=== PATIENT | female | born 1935 | race Caucasian/White ===

== ENCOUNTER → 2016-10-11 12:17 | Emergency (ER) | payer MEDICARE ==
[~2016-10-11 12:17] MED LIST: Insulin REGULAR(*) 1 UNITS UNIT IV PUSH ONE; Morphine INJ* 4 MG/ML 1 ML SYRINGE IV ONE; NS 0.9% 1000 ML* 1,000 ML IV ONE; NS 0.9% 1000 ML* 500 ML IV ONE; Ondansetron INJ* 2 MG/ML VIAL IV ONE
--- NOTE | 2016-10-11 14:04 | RAD ---
Indication: Fall, chest pain. Single view of the chest demonstrates no mediastinal shift. Heart is normal size and configuration. Lungs are clear. No changes noted since March 14, 2015. IMPRESSION: No active cardiopulmonary disease is noted.
--- NOTE | 2016-10-11 14:05 | RAD ---
Indication: Left hip pain. 2 views of left hip demonstrates a fracture through the proximal diaphysis of the femur. Overriding of the fracture fragment is noted. Pelvic ring is grossly intact. IMPRESSION: OBLIQUE FRACTURE THROUGH THE PROXIMAL DIAPHYSIS OF THE FEMUR.
--- NOTE | 2016-10-11 14:06 | RAD ---
Indication: Fall, leg pain. 4 views of the left femur demonstrates spiral fracture through the proximal to mid shaft of the left femur. There is anterior and lateral angulation of the distal fracture fragment with likely rotation. The fracture appears to be moderately comminuted. IMPRESSION: Moderately comminuted spiral fracture proximal and mid shaft of the left femur.
[2016-10-11 14:33] LABS: Hematocrit 34 % (35-47); Hemoglobin 10.7 g/dl (12.0-16.0); Mean Corpuscular HGB Conc 32 g/dl (31-36); Mean Corpuscular Hemoglobin 28 pg (27-31); Mean Corpuscular Volume 89 fL (80-97); Mean Platelet Volume 9 um3 (7.4-10.4); Red Blood Count 3.78 10^6/ul (4.0-5.4); Red Cell Distribution Width 17 % (10.5-15)
[2016-10-11 14:41] LABS: Urine Bacteria Absent (Absent); Urine Bilirubin Negative (Negative); Urine Glucose 3+(>=500 mg/dL) (Negative); Urine Nitrite Negative (Negative)
[2016-10-11 14:41] LABS: Add Diff/Slide Review? Slide Review Added; Comments Flag Yes
[2016-10-11 14:49] LABS: Albumin 3.2 g/dL (3.2-5.2); C Reactive Protein 271.49 mg/L (< 5.00); Calcium 8.9 mg/dL (8.6-10.3); EGFR African American 57.7 (>60); EGFR Non-African American 44.8 (>60); Globulin 2.8 g/dL (2-4); Potassium 4.2 mmol/L (3.5-5.0); Total Bilirubin 1.4 mg/dL (0.2-1.0)
--- NOTE | 2016-10-11 15:53 | RAD ---
Indication: Fall, head injury and neck injury. CT of the brain was performed without IV contrast. Comparison is made with previous exam dated July 11, 2014. Ventricular structures are midline. No midline shift is noted. The extra-axial spaces are unremarkable. There is no evidence of intracranial mass or hemorrhage. Periventricular lucency consistent with chronic ischemic White matter change is noted unchanged from previous exam. Mastoid air cells and paranasal sinuses are otherwise unremarkable. IMPRESSION: There is no evidence of intracranial mass or hemorrhage. Chronic ischemic White matter change is noted.
--- NOTE | 2016-10-11 15:58 | RAD ---
INDICATION: Fall. COMPARISON: None TECHNIQUE: Noncontrast axial source images was performed from the skull base to the thoracic inlet. Coronal and and sagittal reformatted images were generated. FINDINGS: Vertebrae: There is no fracture or acute focal bony lesion. There is minor multilevel osteoarthritic change. Alignment: The craniocervical junction appears normal. The cervical vertebrae are normally aligned. Central Canal: There are no significant CT abnormalities of the central canal or foramina. MR imaging is a more sensitive method to evaluate the canal and foramina. Intervertebral disc spaces: The disc spaces are maintained. Brain: The visualized brain appears unremarkable. Soft tissues: The visualized soft tissue elements of the neck are unremarkable. The prevertebral soft tissues appear normal. The lung apices are clear. IMPRESSION: MINOR DEGENERATIVE CHANGE. NO ACUTE FINDINGS.
[2016-10-11 16:15] VITALS: BP 217/73
--- NOTE | 2016-10-11 16:16 | ED ---
Sallie Man Auryana, scribed for Corwin Garcia MD on 10/11/16 at 1302 . Complex/Multi-Sys Presentation - HPI Summary HPI Summary: 80 year old female BIBA s/p fall 3 days ago. Patient reports that she has been on the floor for 3 days and was unable to reach her call maher in her bedroom. She reports severe left leg pain, back pain, nausea, vomiting x3-4-states due to dehydration. She reports that she was unable to move her left leg due to pain. She denies any SOB. Patient is on blood thinners. PMHx is significant for kidney failure, HTN, HLD, CHF, A-Fib, NIDDM, and hypothyroidism. FHx is significant for lung CA. - History Of Current Complaint Time Seen by Provider: 10/11/16 12:36 Hx Obtained From: Patient Onset/Duration: Sudden Onset Timing: Constant Severity Currently: Severe Severity Initially: Severe Location: Pain At: - BACK PAIN, LEFT LEG PAIN Associated Signs And Symptoms: Positive: Nausea, Vomiting, Back Pain, Decreased Oral Intake - DEHYDRATION - SECONDARY TO FALL, Recent Trauma - FALL 3 DAYS AGO, Other - URINARY AND FECAL INCONTINENCE - Allergies/Home Medications Allergies/Adverse Reactions: Allergies Allergy/AdvReac Type Severity Reaction Status Date / Time Celecoxib [From Celebrex] Allergy Swelling Verified 06/09/15 13:40 PMH/Surg Hx/FS Hx/Imm Hx Endocrine/Hematology History: Reports: Hx Diabetes, Hx Anemia Denies: Hx Anticoagulant Therapy, Hx Blood Disorders, Hx Blood Transfusions, Hx Bone Marrow Disease, Hx Sickle Cell Disease, Hx Thyroid Disease, Hx Unexplained Bleeding, Other Endocrine/Hematological Disorders Cardiovascular History: Reports: Hx Congestive Heart Failure, Hx Hypertension - ON MEDS, Other Cardiovascular Problems/Disorders - CAD/IDDM II Denies: Hx Aneurysm, Hx Angina, Hx Angioplasty, Hx Auto Implanted Cardiovert Defib, Hx Cardiac Arrest, Hx Coronary Artery Disease, Hx Deep Vein Thrombosis, Hx Embolism, Hx Hypercholesterolemia, Hx Hypotension, Hx Myocardial Infarction, Hx Pacemaker/ICD, Hx Peripheral Vascular Disease, Hx Rheumatic Fever, Hx Syncope , Hx Valvular Heart Disease Respiratory History: Reports: Hx Chronic Obstructive Pulmonary Disease (COPD) Denies: Hx Asthma, Hx Lung Cancer, Hx Pneumonia, Hx Pulmonary Embolism, Other Respiratory Problems/Disorders GI History: Reports: Hx Gastroesophageal Reflux Disease Denies: Hx Cirrhosis, Hx Crohn's Disease, Hx Diverticulosis, Hx Gall Bladder Disease, Hx Gastrointestinal Bleed, Hx Hiatal Hernia, Hx Irritable Bowel, Hx Jaundice, Hx Obstructive Bowel, Hx Ileostomy, Hx Pyloric Stenosis, Hx Ulcer, Hx Urosepsis, Other GI Disorders History: Denies: Hx Acute Renal Failure, Hx Benign Prostatic Hyperplasia, Hx Chronic Renal Failure, Hx Dialysis, Hx Kidney Infection, Hx Kidney Stones, Hx Renal Disease, Other Problems/Disorders Musculoskeletal History: Denies: Hx Arthritis, Hx Rheumatoid Arthritis, Other Musculoskeletal History Sensory History: Reports: Hx Cataracts - ALEX, Hx Contacts or Glasses Denies: Hx Eye Injury, Hx Eye Prosthesis, Hx Glaucoma, Hx Legally Blind, Hx Macular Degeneration, Hx Vision Problem, Hx Deafness, Hx Hearing Aid, Hx Hearing Problem, Other Sensory Impairments Opthamlomology History: Reports: Hx Cataracts - ALEX, Hx Contacts or Glasses Denies: Hx Eye Injury, Hx Eye Prosthesis, Hx Glaucoma, Hx Legally Blind, Hx Macular Degeneration, Hx Vision Problem, Other Sensory Impairments Neurological History: Reports: Hx Headaches Denies: Hx Dementia, Hx Migraine, Hx Nerve Disease, Hx Seizures, Hx Transient Ischemic Attacks (TIA), Other Neuro Impairments/Disorders Psychiatric History: Reports: Hx Depression - NO MEDS Denies: Hx Anxiety, Hx Panic Disorder, Hx Schizophrenia, Hx Bipolar Disorder - Surgical History Surgery Procedure, Year, and Place: TRIGGER FINGER RELEASE 09/05. ANGIOPLASTY RIGHT LEG WITH [place] [facility] [place]. TONSILECTOM[place] A CHILD. BUNIONECTOMY WITH MARGARET, [facility], [place]. A[place] [facility], [place]. CATARACTS Hx Anesthesia Reactions: No Infectious Disease History: Denies: Hx Clostridium Difficile, Hx Hepatitis, Hx Human Immunodeficiency Virus (HIV), Hx of Known/Suspected MRSA, Hx Shingles, Hx Tuberculosis, Hx Known/ Suspected VRE, Hx Known/Suspected VRSA, History Other Infectious Disease, Traveled Outside the [place] in Last 30 Days - Family History Known Family History: Positive: Other - LUNG CANCER - Social History Occupation: Retired Alcohol Use: None Alcohol Amount: 2 PER YEAR Substance Use Type: Reports: None Hx Tobacco Use: Yes Smoking Status (MU): Former Smoker Amount Used/How Often: 1.5 PACKS A DAY Have You Smoked in the Last Year: No Review of Systems Positive: Other - dehydration. Negative: Fever Eyes: Negative ENT: Negative Cardiovascular: Negative Respiratory: Negative Negative: Shortness Of Breath Positive: Vomiting, Nausea Positive: incontinence - both urinary and fecal Positive: Arthralgia - back pain , Myalgia - left leg, Decreased ROM - in the left leg Positive: Bruising - left leg Neurological: Negative Psychological: Normal All Other Systems Reviewed And Are Negative: Yes Physical Exam - Summary Physical Exam Summary: VITAL SIGNS: Reviewed. GENERAL: Patient is a female who is lying uncomfortable in the stretcher. Patient is not in any acute respiratory distress. She is full of urine and feces. HEAD AND FACE: No signs of trauma. No ecchymosis, hematomas or skull depressions. No sinus tenderness. EYES: PERRLA, EOMI x 2, No injected conjunctiva, no nystagmus. EARS: Hearing grossly intact. Ear canals and tympanic membranes are within normal limits. MOUTH: Oropharynx within normal limits. NECK: Supple, trachea is midline, no adenopathy, no JVD, no carotid bruit, no c- spine tenderness, neck with full ROM. CHEST: Symmetric, no tenderness at palpation, Ecchymosis to both breasts. LUNGS: Clear to auscultation bilaterally. No wheezing or crackles. CVS: Regular rate and rhythm, S1 and S2 present, no murmurs or gallops appreciated. ABDOMEN: Soft, non-tender. No signs of distention. No rebound no guarding, and no masses palpated. Bowel sounds are normal. EXTREMITIES: FROM in all major joints, no cyanosis or clubbing. Left leg swelling with positive ecchymosis on the left thigh. Decreased ROM of left leg secondary to pain. Good femoral pulses. NEURO: Alert and oriented x 3. No acute neurological deficits. Speech is normal and follows commands. SKIN: Dry and warm. Multiple ecchymosis on the left and right forearm extending to both hands. Multiple skin tears. Triage Information Reviewed: Yes Vital Signs On Initial Exam: Initial Vitals Resp 16 10/11/16 13:10 Vital Signs Reviewed: Yes Diagnostics - Vital Signs Vital Signs Resp 10/11/16 15:21 16 10/11/16 13:10 16 - Laboratory Lab Results: Lab Results 10/11/16 10/11/16 10/11/16 Range/Units 14:20 14:26 14:26 WBC 34.0 H (3.5-10.8) 10^3/ul RBC 3.78 L (4.0-5.4) 10^6/ul Hgb 10.7 L (12.0-16.0) g/dl Hct 34 L (35-47) % MCV 89 (80-97) fL MCH 28 (27-31) pg MCHC 32 (31-36) g/dl RDW 17 H (10.5-15) % Plt Count 279 (150-450) 10^3/ul MPV 9 (7.4-10.4) um3 Neut % (Auto) 91.9 H (38-83) % Lymph % (Auto) 1.9 L (25-47) % [place] % (Auto) 6.0 (1-9) % Eos % (Auto) 0 (0-6) % Baso % (Auto) 0.2 (0-2) % Absolute Neuts (auto) 31.3 H (1.5-7.7) 10^3/ul Absolute Lymphs (auto) 0.6 L (1.0-4.8) 10^3/ul Absolute Monos (auto) 2.1 H (0-0.8) 10^3/ul Absolute Eos (auto) 0 (0-0.6) 10^3/ul Absolute Basos (auto) 0.1 (0-0.2) 10^3/ul Absolute Nucleated RBC 0 10^3/ul Nucleated RBC % 0 INR (Anticoag Therapy) (0.89-1.11) Sodium 139 (133-145) mmol/L Potassium 4.2 (3.5-5.0) mmol/L Chloride 105 (101-111) mmol/L Carbon Dioxide 22 (22-32) mmol/L Anion Gap 12 H (2-11) mmol/L BUN 29 H (6-24) mg/dL Creatinine 1.16 H (0.51-0.95) mg/dL Est GFR ( Amer) 57.7 (>60) Est GFR (Non-Af Amer) 44.8 (>60) BUN/Creatinine Ratio 25.0 H (8-20) Glucose 465 H (70-100) mg/dL Lactic Acid (0.5-2.0) mmol/L Calcium 8.9 (8.6-10.3) mg/dL Total Bilirubin 1.40 H (0.2-1.0) mg/dL AST 17 (13-39) U/L ALT 16 (7-52) U/L Alkaline Phosphatase 61 (34-104) U/L Total Creatine Kinase 310 H (10-223) U/L C-Reactive Protein 271.49 H (< 5.00) mg/L B-Natriuretic Peptide ( - 100) pg/mL Total Protein 6.0 L (6.4-8.9) g/dL Albumin 3.2 (3.2-5.2) g/dL Globulin 2.8 (2-4) g/dL Albumin/Globulin Ratio 1.1 (1-3) Lipase 41 (11.0-82.0) U/L Urine Color Yellow Urine Appearance Cloudy Urine pH 5.0 (5-9) Ur Specific [place] 1.018 (1.010-1.030) Urine Protein 2+(100 mg/dl) H (Negative) Urine Ketones Trace H (Negative) Urine Blood 2+ H (Negative) Urine Nitrate Negative (Negative) Urine Bilirubin Negative (Negative) Urine Urobilinogen Negative (Negative) Ur Leukocyte Esterase Negative (Negative) Urine WBC (Auto) Absent (Absent) Urine RBC (Auto) Absent (Absent) Urine Bacteria Absent (Absent) Hyaline Casts Present H (Absent) Urine Glucose 3+(>=500 mg/dl) H (Negative) 10/11/16 10/11/16 10/11/16 Range/Units 14:26 14:26 14:26 WBC (3.5-10.8) 10^3/ul RBC (4.0-5.4) 10^6/ul Hgb (12.0-16.0) g/dl Hct (35-47) % MCV (80-97) fL MCH (27-31) pg MCHC (31-36) g/dl RDW (10.5-15) % Plt Count (150-450) 10^3/ul MPV (7.4-10.4) um3 Neut % (Auto) (38-83) % Lymph % (Auto) (25-47) % [place] % (Auto) (1-9) % Eos % (Auto) (0-6) % Baso % (Auto) (0-2) % Absolute Neuts (auto) (1.5-7.7) 10^3/ul Absolute Lymphs (auto) (1.0-4.8) 10^3/ul Absolute Monos (auto) (0-0.8) 10^3/ul Absolute Eos (auto) (0-0.6) 10^3/ul Absolute Basos (auto) (0-0.2) 10^3/ul Absolute Nucleated RBC 10^3/ul Nucleated RBC % INR (Anticoag Therapy) 1.03 (0.89-1.11) Sodium (133-145) mmol/L Potassium (3.5-5.0) mmol/L Chloride (101-111) mmol/L Carbon Dioxide (22-32) mmol/L Anion Gap (2-11) mmol/L BUN (6-24) mg/dL Creatinine (0.51-0.95) mg/dL Est GFR ( Amer) (>60) Est GFR (Non-Af Amer) (>60) BUN/Creatinine Ratio (8-20) Glucose (70-100) mg/dL Lactic Acid 3.8 H* (0.5-2.0) mmol/L Calcium (8.6-10.3) mg/dL Total Bilirubin (0.2-1.0) mg/dL AST (13-39) U/L ALT (7-52) U/L Alkaline Phosphatase (34-104) U/L Total Creatine Kinase (10-223) U/L C-Reactive Protein (< 5.00) mg/L B-Natriuretic Peptide 351 H ( - 100) pg/mL Total Protein (6.4-8.9) g/dL Albumin (3.2-5.2) g/dL Globulin (2-4) g/dL Albumin/Globulin Ratio (1-3) Lipase (11.0-82.0) U/L Urine Color Urine Appearance Urine pH (5-9) Ur Specific [place] (1.010-1.030) Urine Protein (Negative) Urine Ketones (Negative) Urine Blood (Negative) Urine Nitrate (Negative) Urine Bilirubin (Negative) Urine Urobilinogen (Negative) Ur Leukocyte Esterase (Negative) Urine WBC (Auto) (Absent) Urine RBC (Auto) (Absent) Urine Bacteria (Absent) Hyaline Casts (Absent) Urine Glucose (Negative) Result Diagrams: 10/11/16 14:26 10/11/16 14:26 Lab Statement: Any lab studies that have been ordered have been reviewed, and results considered in the medical decision making process. - Radiology CXR Xray Interpretation: No Acute Changes Radiology Interpretation Completed By: Radiologist LEFT FEMUR Xray Interpretation: Positive (See Comments) - IMPRESSION: Moderately comminuted spiral fracture proximal and mid shaft of the left femur. Radiology Interpretation Completed By: Radiologist LEFT HIP/PELVIS XR Xray Interpretation: Positive (See Comments) - IMPRESSION: OBLIQUE FRACTURE THROUGH THE PROXIMAL DIAPHYSIS OF THE FEMUR. Radiology Interpretation Completed By: Radiologist - CT CERVICAL CT Interpretation: Positive (See Comments) - IMPRESSION: MINOR DEGENERATIVE CHANGE. NO ACUTE FINDINGS. CT Interpretation Completed By: Radiologist BRAIN CT Interpretation: Positive (See Comments) - IMPRESSION: There is no evidence of intracranial mass or hemorrhage. Chronic ischemic White matter change is noted. CT Interpretation Completed By: Radiologist - EKG 14:34 EKG Interpretation: NSR @ 96, no ST elevation Complex Multi-Symp Course/Dx Assessment/Plan: 80 year old female BIBA s/p fall 3 days ago. Patient reports that she has been on the floor for 3 days and was unable to reach her call maher in her bedroom. She reports severe left leg pain, back pain, nausea, vomiting x3 -4-states due to dehydration. She reports that she was unable to move her left leg due to pain. She denies any SOB. Patient is on blood thinners. PMHx is significant for kidney failure, HTN, HLD, CHF, A-Fib, NIDDM, and hypothyroidism. FHx is significant for lung CA. Test results show Leukocytosis of 34 without bands. Positive chronic anemia. Acute on chronic renal failure. Glucose 465, hemoglobin of 3.8, BNP 361, UA neg for U.T.I. but positive for ketones and 2+ blood. LEFT FEMUR XR - IMPRESSION: Moderately comminuted spiral fracture proximal and mid shaft of the left femur. LEFT HIP/PELVIS XR - IMPRESSION: OBLIQUE FRACTURE THROUGH THE PROXIMAL DIAPHYSIS OF THE FEMUR. CXR NAD. CT CERVICAL SPINE IMPRESSION: MINOR DEGENERATIVE CHANGE. NO ACUTE FINDINGS. CT BRAIN - IMPRESSION: There is no evidence of intracranial mass or hemorrhage. Chronic ischemic. White matter change is noted. 14:22 consult - recommended transfer due to complicated surgery. 15:15 - Dr. Wu - orthopedic and Dr. Marti in ER at [facility] - accept patient for admission. In ED course, we cleaned patient since she was covered in urine and feces, we started with IV fluids since patient is in renal failure , is dehydrated, and is in slight rhabdomyolysis. Patient was given Zofran and morphine for pain. She was given Insulin for hyperglycemia. At this time, patient is much more comfortable. I discussed my case with Dr. Guido and Dr. Rondon from orthopedics- they report that the patient is a high risk and complicated surgery which they cannot perform. Therefore, it was advised that the patient be transported to [facility]. I did speak with Dr. Wu from orthopedics at [facility] who accepted the patient for transfer. I also spoke with ER physician, Dr. Marti, who is aware of patient being transported. At this point patient is hemodynamically stable and she will be transported via [facility] ambulance. Currently awaiting Cervical CT impression and CT brain impression. - Diagnoses Differential Diagnoses/HQI/PQRI: Cardiac Ischemia, Closed Cranial Trauma, CVA, Metabolic Abnormality, Sepsis, Urinary Tract Infection Provider Diagnoses: left spiral femur fracture, Accidental fall, Hyperglycemia, Renal failure, Leukocytosis, Rhabdomyolysis - Physician Notifications Discussed Care Of Patient With: Virgilio Guido - recommended to call 2nd on-call physician Time Discussed With Above Provider: 14:07 - states that he does not do this type of surgery Instructed by Provider To: Transfer Admit/Transition Orders Completed By ED Provider: Yes Reason For Transfer: Specialist unable to manage this patient. - DUE TO HIGH RISK SURGERY - Critical Care Time Critical Care Time: 30-74 min - 30 MINUTES Discharge - Discharge Plan Condition: Stable Disposition: TRANS [facility] Referrals: Rohini Diego MD [Primary Care Provider] - The documentation as recorded by the Sallie ron Auryana accurately reflects the service I personally performed and the decisions made by me, Corwin Garcia MD.
== END | disposition short-term general hospital (02) ==
LOC: ED 12:17
DX: S72.92XA Unspecified fracture of left femur, initial encounter for closed fracture (principal); N19 Unspecified kidney failure; D72.829 Elevated white blood cell count, unspecified; M62.82 Rhabdomyolysis; M79.605 Pain in left leg; M54.9 Dorsalgia, unspecified; R73.9 Hyperglycemia, unspecified; R11.2 Nausea with vomiting, unspecified; W19.XXXA Unspecified fall, initial encounter; Y93.9 Activity, unspecified; Y92.9 Unspecified place or not applicable
CPT/HCPCS: 36415; 70450; 71010; 72125; 80053; 81003; 81015; 82550; 83605; 83690; 83880; 85025; 85610; 86140; 93005; 99283; J2270; J2405